=== PATIENT | female | born 1955 | race Caucasian/White ===

== ENCOUNTER 2017-12-09 02:59 | Inpatient (IN) | payer MEDICAID ==
[2017-12-09] VITALS (43 sets, daily range): BP systolic 84–143; BP diastolic 34–87
[~2017-12-09] VITALS: Ht 162.6 cm; Wt 185.7 kg
[2017-12-09] MEDS ORDERED: ONDANSETRON HCL 4MG/2ML VIAL IV STA ×2 (03:03→03:17)
[2017-12-09] MEDS ORDERED: IPRATROPIUM BROMIDE (0.02%) 0.5MG/2.5ML NEB HHN STA (03:03)
[2017-12-09] MEDS ORDERED: ALBUTEROL (0.083%) 2.5MG/3ML NEB HHN STA (03:03)
[2017-12-09] MEDS ORDERED: ACETAMINOPHEN 325MG TABLET PO STA (03:17)
[2017-12-09] MEDS ORDERED: AZITHROMYCIN 500 MG in DEXT 5% WATER 250 ML IV ONE (03:30)
[2017-12-09] MEDS ORDERED: CEFTRIAXONE 1 G PREMIX 50 ML IV ONE (03:30)
[2017-12-09 03:32] LABS: BG BASE EXCESS 7.7 mmol/L (-2.0-2.0); BG CARBOXYHEMOGLOBIN 1.6 % (0.5-1.5); BG DEOXYHEMOGLOBIN 7.4 % (0.0-5.0); BG FRACTION INSPIRED OXYGEN 36; BG HCO3 ACT 36.9 mmol/L (22.0-26.0); BG METHEMOGLOBIN 0.4 % (0.0-1.5); BG OXYGEN SATURATION 92.4 % (92.0-98.5); BG OXYHEMOGLOBIN 90.6 % (94.0-97.0); BG PCO2 73.8 mmHg (35.0-45.0); BG PH 7.317 (7.350-7.450); BG PO2 71.1 mmHg (75.0-100.0); BG SAMPLE SITE RIGHT RADIAL; BG VENT MODE NASAL CANNULA
[2017-12-09 03:33] LABS: HEMATOCRIT. 43.8 % (36.0-48.0); HEMOGLOBIN. 14.3 g/dL (12.0-16.0); MEAN CORPUSCULAR HEMOGLOBIN 31.1 pg (28.0-32.0); MEAN CORPUSCULAR VOLUME 95.2 fL (81.0-99.0); MEAN PLATELET VOLUME 8.9 fl (7.4-10.4); PLATELET 222 x1000/uL (130-400); RED CELL DISTRIBUTION WIDTH 16.5 % (11.6-14.6)
[2017-12-09 03:54] LABS: CHLORIDE 97 mEq/L (98-107)
[2017-12-09 04:10] LABS: CLARITY URINE CLEAR (CLEAR); COLOR URINE DARK YELLOW (YELLOW); KETONES URINE TRACE (NEGATIVE); LEUKOCYTE ESTERASE URINE TRACE (NEGATIVE); NITRITE URINE POSITIVE (NEGATIVE); OCCULT BLOOD URINE TRACE (NEGATIVE); PH URINE 5.5 (4.5-8.0); PROTEIN URINE 1+ (NEGATIVE); SPECIFIC GRAVITY URINE 1.023 (1.005-1.030)
[2017-12-09] MEDS ORDERED: IBUP-2029 PO (04:10)
[2017-12-09] MEDS ORDERED: LINA1TAB PO (04:13)
[2017-12-09] MEDS ORDERED: LISI-604 PO (04:14)
[2017-12-09] MEDS ORDERED: AMLO2.5T45 PO (04:16)
[2017-12-09 04:44] LABS: ATYPICAL LYMPHOCYTES 1; PLATELET ESTIMATE NORMAL
[2017-12-09] MEDS ORDERED: SODIUM CHLORIDE 0.9% 1000ML BAG (SEPSIS BOLUS) IV NR (05:30)
[2017-12-09] MEDS: DOPAMINE 400MG PREMIX 250 ML IV NR ×2 (05:47→10:51)
[2017-12-09 05:54] LABS: INR 1.2; PARTIAL THROMBOPLASTIN TIME 26.1 sec (23.4-31.0); PROTHROMBIN TIME 12.9 sec (9.4-11.6)
[2017-12-09 06:30] LABS: BG BASE EXCESS 0.8 mmol/L (-2.0-2.0); BG BILEVEL POS AIRWAY PRESSURE 18/5; BG CARBOXYHEMOGLOBIN 1.5 % (0.5-1.5); BG DEOXYHEMOGLOBIN 12.8 % (0.0-5.0); BG FRACTION INSPIRED OXYGEN 50; BG HCO3 ACT 32.6 mmol/L (22.0-26.0); BG METHEMOGLOBIN 0.4 % (0.0-1.5); BG OXYHEMOGLOBIN 85.3 % (94.0-97.0); BG PCO2 92.8 mmHg (35.0-45.0); BG PH 7.164 (7.350-7.450); BG PO2 67.1 mmHg (75.0-100.0); BG SAMPLE SITE RIGHT BRACHIAL; BG TOTAL HEMOGLOBIN 14.7 g/dL (12.0-18.0); BG VENT MODE MASK - BIPAP; BG VENT RATE 16 set
[2017-12-09] MEDS ORDERED: SUCCINYLCHOLINE CHLORIDE 200MG/10ML VIAL IV ONE ×2 (07:00→13:03)
[2017-12-09] MEDS ORDERED: MIDAZOLAM HCL 50 MG in DEXTROSE 5% WATER 40 ML IV ONE ×2 (07:00→10:15)
[2017-12-09 07:56] LABS: BG CARBOXYHEMOGLOBIN 1.6 % (0.5-1.5); BG DEOXYHEMOGLOBIN 7.3 % (0.0-5.0); BG FRACTION INSPIRED OXYGEN 50; BG HCO3 ACT 31.9 mmol/L (22.0-26.0); BG METHEMOGLOBIN 0.4 % (0.0-1.5); BG OXYGEN SATURATION 92.6 % (92.0-98.5); BG OXYHEMOGLOBIN 90.7 % (94.0-97.0); BG PH 7.241 (7.350-7.450); BG PO2 75.3 mmHg (75.0-100.0); BG SAMPLE SITE LEFT RADIAL; BG TIDAL VOLUME(mL) 600 mL; BG VENT MODE VENT - A/C; BG VENT RATE 16 set
[2017-12-09] MEDS ORDERED: FENTANYL CITRATE/PF 50MCG/ML 2ML VIAL IV ONE (08:15)
[2017-12-09] MEDS ORDERED: LIDOCAINE HCL/PF 1% 10 MG/ML 5ML VIAL ONE (08:50)
[2017-12-09] MEDS ORDERED: ONDANSETRON HCL 4MG/2ML VIAL IV PRN (10:15)
[2017-12-09] MEDS ORDERED: NA PHOS,M-B/NA PHOS,DI-BA ENEMA 118ML PR PRN (10:15)
[2017-12-09] MEDS ORDERED: IPRATROPIUM/ALBUTEROL 0.5-3(2.5)MG/3ML NEB INH PRN (10:15)
[2017-12-09] MEDS ORDERED: CLONIDINE 0.1MG TABLET PO PRN (10:15)
[2017-12-09] MEDS ORDERED: DOCUSATE SODIUM 100MG CAPSULE PO PRN (10:15)
[2017-12-09] MEDS ORDERED: DEXTROSE 50% WATER 50ML SYRINGE IV PRN (10:15)
[2017-12-09] MEDS ORDERED: DOPAMINE 400MG PREMIX 250 ML IV ONE (10:15)
[2017-12-09] MEDS ORDERED: MAGNESIUM/ALUMINUM HYDROXIDE/SIMETHICONE 30ML UDC PO PRN (10:15)
[2017-12-09] MEDS ORDERED: GUAIFENESIN 200MG/10ML SUGAR FREE UDC PO PRN (10:15)
[2017-12-09] MEDS ORDERED: NITROGLYCERIN 0.4MG TABLET SL SL PRN (10:15)
[2017-12-09] MEDS ORDERED: IPRATROPIUM/ALBUTEROL 0.5-3(2.5)MG/3ML NEB HHN PRN (12:30)
[2017-12-09] MEDS: BLOOD SUGAR DIAGNOSTIC STRIP TEST SCH ×3 (13:00→21:01)
[2017-12-09] MEDS ORDERED: NORMAL SALINE 0.9% 10 ML SYR ONE (13:03)
[2017-12-09 13:12] LABS: BG BASE EXCESS 8.7 mmol/L (-2.0-2.0); BG CARBOXYHEMOGLOBIN 1.1 % (0.5-1.5); BG DEOXYHEMOGLOBIN 8.7 % (0.0-5.0); BG FRACTION INSPIRED OXYGEN 50; BG HCO3 ACT 34.4 mmol/L (22.0-26.0); BG METHEMOGLOBIN 0.3 % (0.0-1.5); BG OXYGEN SATURATION 91.2 % (92.0-98.5); BG OXYHEMOGLOBIN 89.9 % (94.0-97.0); BG PCO2 50.6 mmHg (35.0-45.0); BG PO2 58.1 mmHg (75.0-100.0); BG SAMPLE SITE RIGHT RADIAL; BG TIDAL VOLUME(mL) 600 mL; BG TOTAL HEMOGLOBIN 14.8 g/dL (12.0-18.0); BG VENT MODE VENT - A/C; BG VENT RATE 16 set
[2017-12-09] MEDS: INSULIN LISPRO 100 UNITS/ML SUBCUT SCH ×3 (13:20→21:01)
[2017-12-09] MEDS ORDERED: NOREPINEPHRINE 4 MG in DEXT 5% WATER 246 ML IV PRN (13:30)
[2017-12-09] MEDS: NOREPINEPHRINE 4 MG in DEXT 5% WATER 246 ML IV PRN ×2 (14:10→21:56)
[2017-12-09] MEDS: DIPHENHYDRAMINE 50MG/ML VIAL IV PRN (14:21)
[2017-12-09] MEDS: PANTOPRAZOLE SODIUM 40 MG/VIAL IV SCH (14:21)
[2017-12-09] MEDS: ENOXAPARIN 40MG/0.4ML SYR SUBCUT SCH ×2 (14:36→23:03)
[2017-12-09] MEDS ORDERED: LEVOFLOXACIN 500MG PREMIX 100 ML IV SCH (15:00)
[2017-12-09] MEDS: IPRATROPIUM/ALBUTEROL 0.5-3(2.5)MG/3ML NEB HHN SCH ×2 (16:12→20:49)
[2017-12-09] MEDS: GUAIFENESIN/DM 600MG/30MG ER TAB 12HR PO SCH ×2 (17:05→23:03)
[2017-12-09] MEDS: FUROSEMIDE 40MG/4ML VIAL IVP SCH (17:33)
[2017-12-09] MEDS: SPIRONOLACTONE 25MG TABLET PO SCH (17:34)
[2017-12-09] MEDS: MIDAZOLAM HCL 50 MG in DEXTROSE 5% WATER 40 ML IV PRN ×2 (17:38→21:29)
[2017-12-09] MEDS: FENTANYL CITRATE/PF 500 MCG in SODIUM CHLORIDE 0.9% 40 ML IV PRN (17:41)
[2017-12-09 18:20] LABS: CREATINE KINASE MB FRACTION 1.3 ng/mL (0.5-3.6)
[2017-12-09] MEDS ORDERED: ZOLPIDEM TARTRATE 5MG TABLET PO PRN (21:00)
[2017-12-09] MEDS ORDERED: DEXT 5% IV NR (22:00)
[2017-12-09] MEDS ORDERED: WATER IV NR (22:00)
[2017-12-09] MEDS ORDERED: VANCOMYCIN IV NR (22:00)
[2017-12-10] VITALS (90 sets, daily range): BP systolic 84–130; BP diastolic 41–82
[2017-12-10] MEDS: IPRATROPIUM/ALBUTEROL 0.5-3(2.5)MG/3ML NEB HHN SCH ×7 (00:49→23:53)
[2017-12-10 00:53] LABS: *AMPHETAMINES SCREEN URINE NEGATIVE (NEGATIVE); *BARBITURATES SCREEN URINE NEGATIVE (NEGATIVE); *BENZODIAZEPINES SCREEN URINE PRESUMTIVE POSITIVE (NEGATIVE); *COCAINE SCREEN URINE NEGATIVE (NEGATIVE); METHADONE URINE SCREEN NEGATIVE (NEGATIVE); OPIATES URINE SCREEN NEGATIVE (NEGATIVE)
[2017-12-10 00:54] LABS: CANNABINOID URINE SCREEN NEGATIVE (NEGATIVE); PHENCYCLIDINE URINE SCREEN NEGATIVE (NEGATIVE)
[2017-12-10] MEDS: FENTANYL CITRATE/PF 500 MCG in SODIUM CHLORIDE 0.9% 40 ML IV PRN ×3 (01:00→16:28)
[2017-12-10 02:34] LABS: CREATINE KINASE MB FRACTION 0.9 ng/mL (0.5-3.6)
[2017-12-10] MEDS: MIDAZOLAM HCL 50 MG in DEXTROSE 5% WATER 40 ML IV PRN ×4 (03:01→23:48)
[2017-12-10] MEDS ORDERED: AZITHROMYCIN 500 MG in DEXT 5% WATER 250 ML IV SCH (05:00)
[2017-12-10] MEDS: NOREPINEPHRINE 4 MG in DEXT 5% WATER 246 ML IV PRN ×2 (05:05→17:24)
[2017-12-10] MEDS: SPIRONOLACTONE 25MG TABLET PO SCH ×2 (05:22→17:23)
[2017-12-10] MEDS: FUROSEMIDE 40MG/4ML VIAL IVP SCH ×2 (05:22→17:23)
[2017-12-10 05:23] LABS: HEMATOCRIT. 42.6 % (36.0-48.0); HEMOGLOBIN. 14.1 g/dL (12.0-16.0); MEAN CORPUSCULAR HEMOGLOBIN 31.2 pg (28.0-32.0); MEAN CORPUSCULAR VOLUME 94.1 fL (81.0-99.0); MEAN PLATELET VOLUME 9.1 fl (7.4-10.4); PLATELET 227 x1000/uL (130-400); RED BLOOD CELL COUNT 4.53 mill/uL (4.2-5.4); RED CELL DISTRIBUTION WIDTH 16.2 % (11.6-14.6)
[2017-12-10 06:11] LABS: CHLORIDE 98 mEq/L (98-107)
[2017-12-10] MEDS: INSULIN LISPRO 100 UNITS/ML SUBCUT SCH ×4 (06:13→20:56)
[2017-12-10] MEDS: BLOOD SUGAR DIAGNOSTIC STRIP TEST SCH ×4 (06:13→20:56)
[2017-12-10 07:19] LABS: BG BASE EXCESS 9.5 mmol/L (-2.0-2.0); BG CARBOXYHEMOGLOBIN 0.8 % (0.5-1.5); BG DEOXYHEMOGLOBIN 5.3 % (0.0-5.0); BG HCO3 ACT 34.7 mmol/L (22.0-26.0); BG METHEMOGLOBIN 0.1 % (0.0-1.5); BG OXYGEN SATURATION 94.7 % (92.0-98.5); BG OXYHEMOGLOBIN 93.8 % (94.0-97.0); BG PCO2 48.7 mmHg (35.0-45.0); BG PH 7.471 (7.350-7.450); BG PO2 70.3 mmHg (75.0-100.0); BG SAMPLE SITE RIGHT RADIAL; BG TIDAL VOLUME(mL) 600 mL; BG TOTAL HEMOGLOBIN 14.7 g/dL (12.0-18.0); BG VENT MODE VENT - A/C; BG VENT RATE 16 set
[2017-12-10] MEDS: GUAIFENESIN/DM 600MG/30MG ER TAB 12HR PO SCH ×2 (08:30→20:55)
[2017-12-10] MEDS: ASPIRIN 325MG EC TABLET PO SCH (08:30)
[2017-12-10] MEDS: PANTOPRAZOLE SODIUM 40 MG/VIAL IV SCH (08:31)
[2017-12-10] MEDS: TRAMADOL 50MG TABLET PO PRN ×2 (08:31→20:55)
[2017-12-10] MEDS: ENOXAPARIN 40MG/0.4ML SYR SUBCUT SCH ×2 (08:32→20:55)
[2017-12-10] MEDS: VANCOMYCIN 1500MG in DEXTROSE 5% WATER 250ML IV SCH (08:35)
[2017-12-10] MEDS ORDERED: CEFTRIAXONE 1 G PREMIX 50 ML IV SCH (09:00)
[2017-12-10] MEDS: LEVOFLOXACIN 500MG PREMIX 100 ML IV SCH (10:17)
[2017-12-10] MEDS: ACETAMINOPHEN 325MG TABLET PO PRN (13:23)
[2017-12-11] VITALS (96 sets, daily range): BP systolic 83–123; BP diastolic 36–73
[2017-12-11] MEDS: FENTANYL CITRATE/PF 500 MCG in SODIUM CHLORIDE 0.9% 40 ML IV PRN ×3 (00:28→20:35)
[2017-12-11] MEDS: NOREPINEPHRINE 4 MG in DEXT 5% WATER 246 ML IV PRN ×3 (01:23→16:13)
[2017-12-11] MEDS: VANCOMYCIN 1500MG in DEXTROSE 5% WATER 250ML IV SCH ×2 (03:20→20:33)
[2017-12-11] MEDS: IPRATROPIUM/ALBUTEROL 0.5-3(2.5)MG/3ML NEB HHN SCH ×6 (04:00→23:39)
[2017-12-11 05:02] LABS: PLATELET ESTIMATE NORMAL
[2017-12-11 05:37] LABS: HEMATOCRIT. 41.7 % (36.0-48.0); HEMOGLOBIN. 13.8 g/dL (12.0-16.0); MEAN CORPUSCULAR VOLUME 93.5 fL (81.0-99.0); MEAN PLATELET VOLUME 9.2 fl (7.4-10.4); PLATELET 220 x1000/uL (130-400); RED BLOOD CELL COUNT 4.46 mill/uL (4.2-5.4); RED CELL DISTRIBUTION WIDTH 16.2 % (11.6-14.6)
[2017-12-11] MEDS: AZITHROMYCIN 500 MG in DEXT 5% WATER 250 ML IV SCH (05:44)
[2017-12-11] MEDS: FUROSEMIDE 40MG/4ML VIAL IVP SCH ×2 (05:44→17:33)
[2017-12-11] MEDS: SPIRONOLACTONE 25MG TABLET PO SCH ×2 (05:44→17:33)
[2017-12-11 05:48] LABS: CHLORIDE 96 mEq/L (98-107)
[2017-12-11 05:59] LABS: LDL CHOLESTEROL 61 mg/dL (5-100)
[2017-12-11 06:00] LABS: CREATINE KINASE 30 IU/L (26-192)
[2017-12-11 06:01] LABS: HDL CHOLESTEROL 20 mg/dL (40-59)
[2017-12-11 06:04] LABS: CREATINE KINASE MB FRACTION < 0.5 ng/mL (0.5-3.6)
[2017-12-11] MEDS: BLOOD SUGAR DIAGNOSTIC STRIP TEST SCH ×4 (06:07→20:36)
[2017-12-11] MEDS: INSULIN LISPRO 100 UNITS/ML SUBCUT SCH ×4 (06:08→20:39)
[2017-12-11] MEDS: MIDAZOLAM HCL 50 MG in DEXTROSE 5% WATER 40 ML IV PRN ×2 (07:30→16:53)
[2017-12-11 08:42] LABS: BG BASE EXCESS 8.6 mmol/L (-2.0-2.0); BG CARBOXYHEMOGLOBIN 0.7 % (0.5-1.5); BG DEOXYHEMOGLOBIN 4.4 % (0.0-5.0); BG FRACTION INSPIRED OXYGEN 100; BG HCO3 ACT 34.5 mmol/L (22.0-26.0); BG METHEMOGLOBIN 0.2 % (0.0-1.5); BG OXYGEN SATURATION 95.6 % (92.0-98.5); BG OXYHEMOGLOBIN 94.7 % (94.0-97.0); BG PCO2 51.8 mmHg (35.0-45.0); BG PH 7.441 (7.350-7.450); BG PO2 78.4 mmHg (75.0-100.0); BG SAMPLE SITE RIGHT RADIAL; BG TIDAL VOLUME(mL) 600 mL; BG TOTAL HEMOGLOBIN 14.5 g/dL (12.0-18.0); BG VENT MODE VENT - A/C; BG VENT RATE 16 set
[2017-12-11] MEDS: ASPIRIN 325MG EC TABLET PO SCH (09:14)
[2017-12-11] MEDS: GUAIFENESIN/DM 600MG/30MG ER TAB 12HR PO SCH ×2 (09:14→20:33)
[2017-12-11] MEDS: PANTOPRAZOLE SODIUM 40 MG/VIAL IV SCH (09:15)
[2017-12-11] MEDS: CEFTRIAXONE 1 G PREMIX 50 ML IV SCH (09:15)
[2017-12-11] MEDS: ENOXAPARIN 40MG/0.4ML SYR SUBCUT SCH (09:15)
[2017-12-11] MEDS: LEVOFLOXACIN 500MG PREMIX 100 ML IV SCH (11:47)
[2017-12-11 13:53] LABS: PLATELET ESTIMATE NORMAL
[2017-12-11] MEDS: ACETAMINOPHEN 325MG TABLET PO PRN (16:10)
[2017-12-11 17:02] LABS: BG BASE EXCESS 8.5 mmol/L (-2.0-2.0); BG CARBOXYHEMOGLOBIN 0.7 % (0.5-1.5); BG DEOXYHEMOGLOBIN 8.2 % (0.0-5.0); BG FRACTION INSPIRED OXYGEN 100; BG HCO3 ACT 34.6 mmol/L (22.0-26.0); BG METHEMOGLOBIN 0.4 % (0.0-1.5); BG OXYGEN SATURATION 91.7 % (92.0-98.5); BG OXYHEMOGLOBIN 90.7 % (94.0-97.0); BG PCO2 52.9 mmHg (35.0-45.0); BG PH 7.433 (7.350-7.450); BG PO2 62.7 mmHg (75.0-100.0); BG SAMPLE SITE RIGHT RADIAL; BG TIDAL VOLUME(mL) 550 mL; BG TOTAL HEMOGLOBIN 14.7 g/dL (12.0-18.0); BG VENT MODE VENT - A/C; BG VENT RATE 18 set
[2017-12-11] MEDS: ENOXAPARIN 100MG/ML SYR SUBCUT SCH (20:33)
[2017-12-11] MEDS ORDERED: POTASSIUM CHLORIDE INJ 40 MEQ in DEXT 5% WATER 500 ML IV NR (21:30)
[2017-12-12] VITALS (96 sets, daily range): BP systolic 72–175; BP diastolic 44–106
[2017-12-12] MEDS: MIDAZOLAM HCL 50 MG in DEXTROSE 5% WATER 40 ML IV PRN ×3 (01:36→21:55)
[2017-12-12] MEDS ORDERED: VASOPRESSIN 10 UNIT in SODIUM CHLORIDE 0.9% 99.5 ML IV PRN (03:30)
[2017-12-12] MEDS: IPRATROPIUM/ALBUTEROL 0.5-3(2.5)MG/3ML NEB HHN SCH ×5 (03:36→20:39)
[2017-12-12] MEDS: AZITHROMYCIN 500 MG in DEXT 5% WATER 250 ML IV SCH (06:00)
[2017-12-12] MEDS: SPIRONOLACTONE 25MG TABLET PO SCH ×2 (06:00→17:15)
[2017-12-12] MEDS: FUROSEMIDE 40MG/4ML VIAL IVP SCH ×2 (06:00→17:14)
[2017-12-12] MEDS: PHENYLEPHRINE 20 MG in DEXT 5% WATER 248 ML IV PRN ×2 (06:02→09:29)
[2017-12-12] MEDS: BLOOD SUGAR DIAGNOSTIC STRIP TEST SCH ×4 (06:30→21:20)
[2017-12-12] MEDS: INSULIN LISPRO 100 UNITS/ML SUBCUT SCH ×4 (06:52→21:00)
[2017-12-12 08:22] LABS: BG BASE EXCESS 6.6 mmol/L (-2.0-2.0); BG CARBOXYHEMOGLOBIN 0.6 % (0.5-1.5); BG DEOXYHEMOGLOBIN 9.1 % (0.0-5.0); BG FRACTION INSPIRED OXYGEN 100; BG HCO3 ACT 34.4 mmol/L (22.0-26.0); BG METHEMOGLOBIN 0.4 % (0.0-1.5); BG OXYGEN SATURATION 90.8 % (92.0-98.5); BG OXYHEMOGLOBIN 89.9 % (94.0-97.0); BG PCO2 61.5 mmHg (35.0-45.0); BG PH 7.366 (7.350-7.450); BG PO2 61.7 mmHg (75.0-100.0); BG SAMPLE SITE RIGHT RADIAL; BG TIDAL VOLUME(mL) 550 mL; BG TOTAL HEMOGLOBIN 16.2 g/dL (12.0-18.0); BG VENT MODE VENT - A/C; BG VENT RATE 18 set
[2017-12-12] MEDS: NOREPINEPHRINE 4 MG in DEXT 5% WATER 246 ML IV PRN (08:31)
[2017-12-12] MEDS: PANTOPRAZOLE SODIUM 40 MG/VIAL IV SCH (09:17)
[2017-12-12] MEDS: CEFTRIAXONE 1 G PREMIX 50 ML IV SCH (09:18)
[2017-12-12] MEDS: ASPIRIN 325MG EC TABLET PO SCH (09:18)
[2017-12-12] MEDS: GUAIFENESIN/DM 600MG/30MG ER TAB 12HR PO SCH ×2 (09:18→21:19)
[2017-12-12] MEDS: ENOXAPARIN 100MG/ML SYR SUBCUT SCH ×2 (09:18→21:19)
[2017-12-12] MEDS: NYSTATIN POWDER 15GM TOP SCH ×2 (09:19→17:14)
[2017-12-12] MEDS: LEVOFLOXACIN 500MG PREMIX 100 ML IV SCH (10:29)
[2017-12-12] MEDS: FENTANYL CITRATE/PF 500 MCG in SODIUM CHLORIDE 0.9% 40 ML IV PRN ×2 (10:35→22:04)
[2017-12-12] MEDS: NOREPINEPHRINE 16 MG in DEXT 5% WATER 234 ML IV PRN (12:19)
[2017-12-12 12:30] LABS: BG BASE EXCESS 7.1 mmol/L (-2.0-2.0); BG CARBOXYHEMOGLOBIN 0.9 % (0.5-1.5); BG DEOXYHEMOGLOBIN 6.9 % (0.0-5.0); BG FRACTION INSPIRED OXYGEN 100; BG METHEMOGLOBIN 0.3 % (0.0-1.5); BG OXYHEMOGLOBIN 91.9 % (94.0-97.0); BG PCO2 56.9 mmHg (35.0-45.0); BG PH 7.394 (7.350-7.450); BG PO2 67.1 mmHg (75.0-100.0); BG SAMPLE SITE RIGHT RADIAL; BG TIDAL VOLUME(mL) 550 mL; BG TOTAL HEMOGLOBIN 15.4 g/dL (12.0-18.0); BG VENT MODE VENT - A/C; BG VENT RATE 20 set
[2017-12-12] MEDS: PHENYLEPHRINE 40 MG in DEXT 5% WATER 246 ML IV PRN ×2 (13:18→21:48)
[2017-12-12] MEDS ORDERED: VANCOMYCIN 1 G PREMIX 200 ML IV SCH (14:00)
[2017-12-12] MEDS: CLINDAMYCIN 600MG PREMIX 50 ML IV SCH ×2 (15:16→23:14)
[2017-12-13] VITALS (96 sets, daily range): BP systolic 70–164; BP diastolic 15–116
[2017-12-13] MEDS: ACETYLCYSTEINE 100MG/ML 10% VIAL 4ML INH SCH ×2 (00:50→15:44)
[2017-12-13] MEDS: IPRATROPIUM/ALBUTEROL 0.5-3(2.5)MG/3ML NEB HHN SCH ×6 (00:56→21:05)
[2017-12-13] MEDS: FUROSEMIDE 40MG/4ML VIAL IVP SCH (05:33)
[2017-12-13] MEDS: SPIRONOLACTONE 25MG TABLET PO SCH ×3 (05:33→18:21)
[2017-12-13 05:47] LABS: HEMOGLOBIN. 15.7 g/dL (12.0-16.0); MEAN CORPUSCULAR HEMOGLOBIN 30.9 pg (28.0-32.0); MEAN CORPUSCULAR VOLUME 94.4 fL (81.0-99.0); MEAN PLATELET VOLUME 9.9 fl (7.4-10.4); PLATELET 209 x1000/uL (130-400); RED BLOOD CELL COUNT 5.08 mill/uL (4.2-5.4); RED CELL DISTRIBUTION WIDTH 16.6 % (11.6-14.6)
[2017-12-13 06:09] LABS: CHLORIDE 94 mEq/L (98-107)
[2017-12-13] MEDS: CLINDAMYCIN 600MG PREMIX 50 ML IV SCH (06:36)
[2017-12-13] MEDS: INSULIN LISPRO 100 UNITS/ML SUBCUT SCH ×4 (06:37→21:00)
[2017-12-13] MEDS: BLOOD SUGAR DIAGNOSTIC STRIP TEST SCH ×4 (06:40→21:24)
[2017-12-13] MEDS: NOREPINEPHRINE 16 MG in DEXT 5% WATER 234 ML IV PRN (07:34)
[2017-12-13 08:23] LABS: BG BASE EXCESS 3.1 mmol/L (-2.0-2.0); BG CARBOXYHEMOGLOBIN 0.7 % (0.5-1.5); BG FRACTION INSPIRED OXYGEN 100; BG HCO3 ACT 29.7 mmol/L (22.0-26.0); BG METHEMOGLOBIN 0.4 % (0.0-1.5); BG OXYGEN SATURATION 90.9 % (92.0-98.5); BG OXYHEMOGLOBIN 89.9 % (94.0-97.0); BG PCO2 52.7 mmHg (35.0-45.0); BG PH 7.369 (7.350-7.450); BG PO2 62.7 mmHg (75.0-100.0); BG SAMPLE SITE RIGHT RADIAL; BG TIDAL VOLUME(mL) 550 mL; BG TOTAL HEMOGLOBIN 15.5 g/dL (12.0-18.0); BG VENT MODE VENT - A/C; BG VENT RATE 20 set
[2017-12-13] MEDS: ASPIRIN 325MG EC TABLET PO SCH (08:33)
[2017-12-13] MEDS: GUAIFENESIN/DM 600MG/30MG ER TAB 12HR PO SCH ×2 (08:33→21:31)
[2017-12-13] MEDS: PANTOPRAZOLE SODIUM 40 MG/VIAL IV SCH (08:33)
[2017-12-13] MEDS: NYSTATIN POWDER 15GM TOP SCH ×2 (08:34→18:21)
[2017-12-13] MEDS: ENOXAPARIN 100MG/ML SYR SUBCUT SCH ×2 (08:34→21:31)
[2017-12-13] MEDS ORDERED: CEFTRIAXONE 2 G in DEXTROSE 5% WATER 50 ML IV SCH (09:00)
[2017-12-13] MEDS: PHENYLEPHRINE 40 MG in DEXT 5% WATER 246 ML IV PRN (09:50)
[2017-12-13] MEDS: LEVOFLOXACIN 500MG PREMIX 100 ML IV SCH (10:05)
[2017-12-13] MEDS ORDERED: DIGOXIN 500MCG/2ML AMP IV NR (12:45)
[2017-12-13] MEDS: METHYLPREDNISOLONE SOD SUCC 125 MG/2 ML VIAL IV SCH ×2 (13:09→21:31)
[2017-12-13] MEDS: LINEZOLID 600 MG PREMIX 300 ML IV SCH (14:20)
[2017-12-13 14:27] LABS: PLATELET ESTIMATE NORMAL
[2017-12-13] MEDS ORDERED: DIGOXIN 500MCG/2ML AMP IV PRN (15:00)
[2017-12-13] MEDS: FUROSEMIDE 100MG/10ML VIAL IVP SCH (18:21)
[2017-12-14] VITALS (93 sets, daily range): BP systolic 76–187; BP diastolic 30–123
[2017-12-14] MEDS: IPRATROPIUM/ALBUTEROL 0.5-3(2.5)MG/3ML NEB HHN SCH ×6 (00:55→20:03)
[2017-12-14] MEDS: LINEZOLID 600 MG PREMIX 300 ML IV SCH ×2 (01:54→13:50)
[2017-12-14] MEDS: SPIRONOLACTONE 25MG TABLET PO SCH ×2 (05:24→18:32)
[2017-12-14] MEDS: METHYLPREDNISOLONE SOD SUCC 125 MG/2 ML VIAL IV SCH ×3 (05:24→21:23)
[2017-12-14] MEDS: FUROSEMIDE 100MG/10ML VIAL IVP SCH ×2 (05:25→18:33)
[2017-12-14 05:44] LABS: HEMATOCRIT. 45.5 % (36.0-48.0); HEMOGLOBIN. 15.1 g/dL (12.0-16.0); MEAN CORPUSCULAR HEMOGLOBIN 31.1 pg (28.0-32.0); MEAN CORPUSCULAR VOLUME 93.6 fL (81.0-99.0); MEAN PLATELET VOLUME 10.4 fl (7.4-10.4); PLATELET 267 x1000/uL (130-400); RED BLOOD CELL COUNT 4.86 mill/uL (4.2-5.4); RED CELL DISTRIBUTION WIDTH 16.1 % (11.6-14.6)
[2017-12-14] MEDS: BLOOD SUGAR DIAGNOSTIC STRIP TEST SCH ×4 (05:45→21:12)
[2017-12-14 06:22] LABS: CHLORIDE 92 mEq/L (98-107)
[2017-12-14] MEDS: INSULIN LISPRO 100 UNITS/ML SUBCUT SCH ×4 (06:55→21:24)
[2017-12-14 07:54] LABS: BG BASE EXCESS 5.4 mmol/L (-2.0-2.0); BG CARBOXYHEMOGLOBIN 0.8 % (0.5-1.5); BG DEOXYHEMOGLOBIN 12.3 % (0.0-5.0); BG HCO3 ACT 32.5 mmol/L (22.0-26.0); BG METHEMOGLOBIN 0.3 % (0.0-1.5); BG OXYGEN SATURATION 87.6 % (92.0-98.5); BG OXYHEMOGLOBIN 86.6 % (94.0-97.0); BG PCO2 56.3 mmHg (35.0-45.0); BG PH 7.379 (7.350-7.450); BG PO2 53.9 mmHg (75.0-100.0); BG SAMPLE SITE RIGHT RADIAL; BG TIDAL VOLUME(mL) 500 mL; BG TOTAL HEMOGLOBIN 16.7 g/dL (12.0-18.0); BG VENT MODE VENT - A/C; BG VENT RATE 20 set
[2017-12-14] MEDS: ACETYLCYSTEINE 100MG/ML 10% VIAL 4ML INH SCH ×2 (08:28→16:08)
[2017-12-14] MEDS: PANTOPRAZOLE SODIUM 40 MG/VIAL IV SCH (09:32)
[2017-12-14] MEDS: GUAIFENESIN/DM 600MG/30MG ER TAB 12HR PO SCH ×2 (09:32→21:23)
[2017-12-14] MEDS: ASPIRIN 325MG EC TABLET PO SCH (09:32)
[2017-12-14] MEDS: ENOXAPARIN 100MG/ML SYR SUBCUT SCH ×2 (09:32→21:23)
[2017-12-14] MEDS: NYSTATIN POWDER 15GM TOP SCH ×2 (09:33→18:34)
[2017-12-14] MEDS: NOREPINEPHRINE 16 MG in DEXT 5% WATER 234 ML IV PRN (10:50)
[2017-12-14 11:16] LABS: PLATELET ESTIMATE NORMAL
[2017-12-14] MEDS ORDERED: LIDOCAINE HCL/PF 1% 2ML VIAL ONE (13:52)
[2017-12-15] VITALS (93 sets, daily range): BP systolic 87–136; BP diastolic 44–100
[2017-12-15] MEDS: IPRATROPIUM/ALBUTEROL 0.5-3(2.5)MG/3ML NEB HHN SCH ×6 (01:37→20:34)
[2017-12-15] MEDS: ACETYLCYSTEINE 100MG/ML 10% VIAL 4ML INH SCH ×3 (01:37→16:18)
[2017-12-15] MEDS: LINEZOLID 600 MG PREMIX 300 ML IV SCH ×2 (01:44→13:00)
[2017-12-15] MEDS: SPIRONOLACTONE 25MG TABLET PO SCH ×2 (05:24→18:13)
[2017-12-15] MEDS: METHYLPREDNISOLONE SOD SUCC 125 MG/2 ML VIAL IV SCH ×3 (05:24→22:01)
[2017-12-15] MEDS: FUROSEMIDE 100MG/10ML VIAL IVP SCH ×2 (05:24→18:13)
[2017-12-15 05:54] LABS: CHLORIDE 94 mEq/L (98-107)
[2017-12-15] MEDS: BLOOD SUGAR DIAGNOSTIC STRIP TEST SCH ×4 (06:00→21:00)
[2017-12-15] MEDS: INSULIN LISPRO 100 UNITS/ML SUBCUT SCH ×4 (06:12→21:57)
[2017-12-15 08:42] LABS: BG BASE EXCESS 4.5 mmol/L (-2.0-2.0); BG CARBOXYHEMOGLOBIN 0.8 % (0.5-1.5); BG DEOXYHEMOGLOBIN 12.1 % (0.0-5.0); BG FRACTION INSPIRED OXYGEN 100; BG HCO3 ACT 30.4 mmol/L (22.0-26.0); BG METHEMOGLOBIN 0.2 % (0.0-1.5); BG OXYGEN SATURATION 87.8 % (92.0-98.5); BG OXYHEMOGLOBIN 86.9 % (94.0-97.0); BG PCO2 49.3 mmHg (35.0-45.0); BG PH 7.408 (7.350-7.450); BG PO2 54.8 mmHg (75.0-100.0); BG SAMPLE SITE LEFT RADIAL; BG TIDAL VOLUME(mL) 600 mL; BG VENT MODE VENT - A/C; BG VENT RATE 20 set
[2017-12-15] MEDS: PANTOPRAZOLE SODIUM 40 MG/VIAL IV SCH (09:21)
[2017-12-15] MEDS: GUAIFENESIN/DM 600MG/30MG ER TAB 12HR PO SCH ×2 (09:21→21:57)
[2017-12-15] MEDS: ENOXAPARIN 100MG/ML SYR SUBCUT SCH ×2 (09:21→21:59)
[2017-12-15] MEDS: ASPIRIN 325MG EC TABLET PO SCH (09:21)
[2017-12-15] MEDS: NYSTATIN POWDER 15GM TOP SCH ×2 (09:30→18:15)
[2017-12-15] MEDS: METOCLOPRAMIDE HCL 10MG/2ML VIAL IV SCH ×2 (12:57→18:13)
[2017-12-15] MEDS: NOREPINEPHRINE 16 MG in DEXT 5% WATER 234 ML IV PRN (13:02)
[2017-12-16] VITALS (92 sets, daily range): BP systolic 97–156; BP diastolic 52–99
[2017-12-16] MEDS: METOCLOPRAMIDE HCL 10MG/2ML VIAL IV SCH ×4 (00:14→18:20)
[2017-12-16] MEDS: ACETYLCYSTEINE 100MG/ML 10% VIAL 4ML INH SCH ×3 (00:21→23:47)
[2017-12-16] MEDS: IPRATROPIUM/ALBUTEROL 0.5-3(2.5)MG/3ML NEB HHN SCH ×7 (00:21→23:47)
[2017-12-16] MEDS: LINEZOLID 600 MG PREMIX 300 ML IV SCH ×2 (01:16→13:36)
[2017-12-16] MEDS: INSULIN LISPRO 100 UNITS/ML SUBCUT SCH ×4 (06:07→21:55)
[2017-12-16] MEDS: METHYLPREDNISOLONE SOD SUCC 125 MG/2 ML VIAL IV SCH (06:08)
[2017-12-16] MEDS: FUROSEMIDE 100MG/10ML VIAL IVP SCH (06:08)
[2017-12-16] MEDS: SPIRONOLACTONE 25MG TABLET PO SCH (06:09)
[2017-12-16] MEDS: BLOOD SUGAR DIAGNOSTIC STRIP TEST SCH ×4 (06:09→21:47)
[2017-12-16] MEDS: NOREPINEPHRINE 16 MG in DEXT 5% WATER 234 ML IV PRN (07:31)
[2017-12-16 09:07] LABS: BG BASE EXCESS 4.5 mmol/L (-2.0-2.0); BG CARBOXYHEMOGLOBIN 0.8 % (0.5-1.5); BG DEOXYHEMOGLOBIN 7.3 % (0.0-5.0); BG FRACTION INSPIRED OXYGEN 100; BG HCO3 ACT 30.6 mmol/L (22.0-26.0); BG METHEMOGLOBIN 0.4 % (0.0-1.5); BG OXYGEN SATURATION 92.6 % (92.0-98.5); BG OXYHEMOGLOBIN 91.5 % (94.0-97.0); BG PCO2 50.4 mmHg (35.0-45.0); BG PH 7.401 (7.350-7.450); BG SAMPLE SITE RIGHT RADIAL; BG TIDAL VOLUME(mL) 550 mL; BG TOTAL HEMOGLOBIN 16.1 g/dL (12.0-18.0); BG VENT MODE VENT - A/C; BG VENT RATE 20 set
[2017-12-16] MEDS: NYSTATIN POWDER 15GM TOP SCH ×2 (09:38→17:19)
[2017-12-16] MEDS: ENOXAPARIN 100MG/ML SYR SUBCUT SCH ×2 (09:40→21:48)
[2017-12-16] MEDS: PANTOPRAZOLE SODIUM 40 MG/VIAL IV SCH (09:40)
[2017-12-16] MEDS: ASPIRIN 325MG EC TABLET PO SCH (09:40)
[2017-12-16] MEDS: GUAIFENESIN/DM 600MG/30MG ER TAB 12HR PO SCH ×2 (09:40→21:48)
[2017-12-16] MEDS: INSULIN GLARGINE UD 100 UNITS/ML SYR SUBCUT SCH ×2 (10:09→22:52)
[2017-12-16 11:33] LABS: HEMATOCRIT. 45.1 % (36.0-48.0); HEMOGLOBIN. 15.2 g/dL (12.0-16.0); MEAN CORPUSCULAR HEMOGLOBIN 31.3 pg (28.0-32.0); MEAN CORPUSCULAR VOLUME 92.9 fL (81.0-99.0); MEAN PLATELET VOLUME 9.6 fl (7.4-10.4); PLATELET 296 x1000/uL (130-400); RED BLOOD CELL COUNT 4.86 mill/uL (4.2-5.4); RED CELL DISTRIBUTION WIDTH 16.5 % (11.6-14.6)
[2017-12-16 11:57] LABS: CHLORIDE 96 mEq/L (98-107)
[2017-12-16 13:50] LABS: NUCLEATED RED BLOOD CELLS 6 /100 WBC; PLATELET ESTIMATE NORMAL
[2017-12-16] MEDS: METHYLPREDNISOLONE SOD SUCC 40 MG/ML VIAL IV SCH (17:18)
[2017-12-16] MEDS: FUROSEMIDE 40MG/4ML VIAL IVP SCH (17:18)
[2017-12-16] MEDS: ACETAMINOPHEN 325MG TABLET PO PRN (17:19)
[2017-12-16] MEDS: MORPHINE SULFATE 4 MG/ML CPJ (NOT FOR IM USE) IV PRN (18:20)
[2017-12-16] MEDS: DIPHENHYDRAMINE 50MG/ML VIAL IV PRN (21:48)
[2017-12-17] VITALS (91 sets, daily range): BP systolic 71–124; BP diastolic 30–76
[2017-12-17] MEDS: METOCLOPRAMIDE HCL 10MG/2ML VIAL IV SCH ×4 (00:55→17:12)
[2017-12-17] MEDS: LINEZOLID 600 MG PREMIX 300 ML IV SCH ×2 (01:00→14:40)
[2017-12-17] MEDS: ACETAMINOPHEN 325MG TABLET PO PRN ×2 (01:07→17:16)
[2017-12-17] MEDS: IPRATROPIUM/ALBUTEROL 0.5-3(2.5)MG/3ML NEB HHN SCH ×5 (03:38→20:49)
[2017-12-17] MEDS: BLOOD SUGAR DIAGNOSTIC STRIP TEST SCH ×4 (05:27→21:36)
[2017-12-17 05:52] LABS: HEMATOCRIT. 42.8 % (36.0-48.0); HEMOGLOBIN. 14.3 g/dL (12.0-16.0); MEAN CORPUSCULAR HEMOGLOBIN 31.3 pg (28.0-32.0); MEAN CORPUSCULAR VOLUME 93.2 fL (81.0-99.0); MEAN PLATELET VOLUME 9.8 fl (7.4-10.4); PLATELET 267 x1000/uL (130-400); RED BLOOD CELL COUNT 4.59 mill/uL (4.2-5.4); RED CELL DISTRIBUTION WIDTH 16.6 % (11.6-14.6)
[2017-12-17] MEDS: MORPHINE SULFATE 4 MG/ML CPJ (NOT FOR IM USE) IV PRN ×2 (05:53→14:40)
[2017-12-17] MEDS: FUROSEMIDE 40MG/4ML VIAL IVP SCH ×2 (05:53→17:12)
[2017-12-17] MEDS: METHYLPREDNISOLONE SOD SUCC 40 MG/ML VIAL IV SCH (05:53)
[2017-12-17] MEDS: INSULIN LISPRO 100 UNITS/ML SUBCUT SCH ×4 (05:54→22:01)
[2017-12-17 06:07] LABS: CHLORIDE 99 mEq/L (98-107)
[2017-12-17] MEDS: ACETYLCYSTEINE 100MG/ML 10% VIAL 4ML INH SCH ×2 (08:40→16:45)
[2017-12-17 09:22] LABS: BG BASE EXCESS 8.6 mmol/L (-2.0-2.0); BG CARBOXYHEMOGLOBIN 0.9 % (0.5-1.5); BG DEOXYHEMOGLOBIN 3.6 % (0.0-5.0); BG FRACTION INSPIRED OXYGEN 100; BG METHEMOGLOBIN 0.4 % (0.0-1.5); BG OXYGEN SATURATION 96.4 % (92.0-98.5); BG OXYHEMOGLOBIN 95.1 % (94.0-97.0); BG PCO2 54.8 mmHg (35.0-45.0); BG PH 7.423 (7.350-7.450); BG PO2 86.4 mmHg (75.0-100.0); BG SAMPLE SITE LEFT RADIAL; BG TIDAL VOLUME(mL) 500 mL; BG TOTAL HEMOGLOBIN 15.1 g/dL (12.0-18.0); BG VENT MODE VENT - A/C; BG VENT RATE 20 set
[2017-12-17] MEDS: ASPIRIN 325MG EC TABLET PO SCH (10:07)
[2017-12-17] MEDS: GUAIFENESIN/DM 600MG/30MG ER TAB 12HR PO SCH ×2 (10:07→21:49)
[2017-12-17] MEDS: PANTOPRAZOLE SODIUM 40 MG/VIAL IV SCH (10:07)
[2017-12-17] MEDS: NYSTATIN POWDER 15GM TOP SCH ×2 (10:08→17:12)
[2017-12-17] MEDS: ENOXAPARIN 100MG/ML SYR SUBCUT SCH ×2 (10:08→21:49)
[2017-12-17] MEDS: INSULIN GLARGINE UD 100 UNITS/ML SYR SUBCUT SCH ×2 (11:58→22:04)
[2017-12-18] VITALS (91 sets, daily range): BP systolic 81–118; BP diastolic 39–87
[2017-12-18] MEDS: IPRATROPIUM/ALBUTEROL 0.5-3(2.5)MG/3ML NEB HHN SCH ×6 (00:15→20:10)
[2017-12-18] MEDS: ACETYLCYSTEINE 100MG/ML 10% VIAL 4ML INH SCH ×3 (00:16→16:35)
[2017-12-18] MEDS: DIPHENHYDRAMINE 50MG/ML VIAL IV PRN (00:53)
[2017-12-18] MEDS: LINEZOLID 600 MG PREMIX 300 ML IV SCH ×2 (00:53→13:20)
[2017-12-18] MEDS: METOCLOPRAMIDE HCL 10MG/2ML VIAL IV SCH ×5 (00:53→23:39)
[2017-12-18] MEDS: NOREPINEPHRINE 16 MG in DEXT 5% WATER 234 ML IV PRN (00:53)
[2017-12-18] MEDS: BLOOD SUGAR DIAGNOSTIC STRIP TEST SCH ×4 (05:18→20:34)
[2017-12-18 05:37] LABS: BASOPHILS % 0.2 % (0.0-2.0); HEMATOCRIT. 43.9 % (36.0-48.0); HEMOGLOBIN. 14.4 g/dL (12.0-16.0); LYMPHOCYTES % 7.1 % (20.0-50.0); MEAN CORPUSCULAR HEMOGLOBIN 30.8 pg (28.0-32.0); MEAN CORPUSCULAR VOLUME 93.6 fL (81.0-99.0); MEAN PLATELET VOLUME 9.2 fl (7.4-10.4); MONOCYTES % 4.6 % (2.0-8.0); NEUTROPHILS % 88.1 % (40.0-76.0); PLATELET 250 x1000/uL (130-400); RED BLOOD CELL COUNT 4.69 mill/uL (4.2-5.4); RED CELL DISTRIBUTION WIDTH 16.7 % (11.6-14.6)
[2017-12-18 05:47] LABS: CHLORIDE 103 mEq/L (98-107)
[2017-12-18] MEDS: FUROSEMIDE 40MG/4ML VIAL IVP SCH ×2 (06:00→17:22)
[2017-12-18] MEDS: INSULIN LISPRO 100 UNITS/ML SUBCUT SCH ×4 (07:00→20:34)
[2017-12-18 08:01] LABS: BG DEOXYHEMOGLOBIN 4.3 % (0.0-5.0); BG HCO3 ACT 35.7 mmol/L (22.0-26.0); BG METHEMOGLOBIN 0.4 % (0.0-1.5); BG OXYGEN SATURATION 95.6 % (92.0-98.5); BG OXYHEMOGLOBIN 94.3 % (94.0-97.0); BG PCO2 56.4 mmHg (35.0-45.0); BG PH 7.419 (7.350-7.450); BG PO2 77.9 mmHg (75.0-100.0); BG SAMPLE SITE RIGHT RADIAL; BG TIDAL VOLUME(mL) 550 mL; BG TOTAL HEMOGLOBIN 15.2 g/dL (12.0-18.0); BG VENT MODE VENT - A/C; BG VENT RATE 20 set
[2017-12-18] MEDS: GUAIFENESIN/DM 600MG/30MG ER TAB 12HR PO SCH ×2 (08:37→20:32)
[2017-12-18] MEDS: ASPIRIN 325MG EC TABLET PO SCH (08:37)
[2017-12-18] MEDS: PANTOPRAZOLE SODIUM 40 MG/VIAL IV SCH (08:37)
[2017-12-18] MEDS: ENOXAPARIN 100MG/ML SYR SUBCUT SCH ×2 (08:38→20:33)
[2017-12-18] MEDS: NYSTATIN POWDER 15GM TOP SCH ×2 (08:40→17:22)
[2017-12-18] MEDS: MORPHINE SULFATE 4 MG/ML CPJ (NOT FOR IM USE) IV PRN (08:40)
[2017-12-18] MEDS ORDERED: LACTULOSE 20G/30ML UDC PO SCH (09:15)
[2017-12-18] MEDS: PROPOFOL 10MG/ML 100ML 100 ML IV PRN ×4 (09:40→21:52)
[2017-12-18] MEDS: BISACODYL 5MG TABLET PO SCH (09:41)
[2017-12-18] MEDS: DOCUSATE SODIUM SUGAR FREE 100MG/10ML UDC NG SCH (09:43)
[2017-12-18] MEDS: ACETAMINOPHEN 325MG TABLET PO PRN ×2 (09:43→17:22)
[2017-12-18] MEDS: INSULIN GLARGINE UD 100 UNITS/ML SYR SUBCUT SCH ×2 (11:16→21:04)
[2017-12-18 13:30] LABS: PLATELET ESTIMATE NORMAL
[2017-12-18] MEDS ORDERED: LIDOCAINE HCL/PF 1% 2ML VIAL ONE (15:12)
[2017-12-19] VITALS (94 sets, daily range): BP systolic 49–131; BP diastolic 27–80
[2017-12-19] MEDS: IPRATROPIUM/ALBUTEROL 0.5-3(2.5)MG/3ML NEB HHN SCH ×6 (00:34→20:00)
[2017-12-19] MEDS: LINEZOLID 600 MG PREMIX 300 ML IV SCH ×2 (01:05→14:11)
[2017-12-19] MEDS: PROPOFOL 10MG/ML 100ML 100 ML IV PRN (02:02)
[2017-12-19] MEDS: METOCLOPRAMIDE HCL 10MG/2ML VIAL IV SCH ×3 (05:01→17:27)
[2017-12-19] MEDS: FUROSEMIDE 40MG/4ML VIAL IVP SCH ×2 (05:01→17:27)
[2017-12-19] MEDS: NOREPINEPHRINE 16 MG in DEXT 5% WATER 234 ML IV PRN (05:01)
[2017-12-19] MEDS: MORPHINE SULFATE 4 MG/ML CPJ (NOT FOR IM USE) IV PRN ×2 (05:10→09:38)
[2017-12-19 05:35] LABS: HEMATOCRIT. 43.8 % (36.0-48.0); HEMOGLOBIN. 14.3 g/dL (12.0-16.0); MEAN CORPUSCULAR HEMOGLOBIN 30.7 pg (28.0-32.0); MEAN PLATELET VOLUME 10.1 fl (7.4-10.4); PLATELET 221 x1000/uL (130-400); RED BLOOD CELL COUNT 4.66 mill/uL (4.2-5.4); RED CELL DISTRIBUTION WIDTH 16.5 % (11.6-14.6)
[2017-12-19] MEDS: BLOOD SUGAR DIAGNOSTIC STRIP TEST SCH ×4 (05:56→20:44)
[2017-12-19 06:00] LABS: CHLORIDE 104 mEq/L (98-107)
[2017-12-19] MEDS: INSULIN LISPRO 100 UNITS/ML SUBCUT SCH ×4 (06:02→20:52)
[2017-12-19] MEDS: ACETAMINOPHEN 325MG TABLET PO PRN ×3 (06:06→15:15)
[2017-12-19] MEDS: PHENYLEPHRINE 40 MG in DEXT 5% WATER 246 ML IV PRN ×4 (07:31→20:00)
[2017-12-19 07:38] LABS: BG BASE EXCESS 6.6 mmol/L (-2.0-2.0); BG CARBOXYHEMOGLOBIN 1.1 % (0.5-1.5); BG DEOXYHEMOGLOBIN 12.3 % (0.0-5.0); BG HCO3 ACT 32.3 mmol/L (22.0-26.0); BG METHEMOGLOBIN 0.3 % (0.0-1.5); BG OXYGEN SATURATION 87.5 % (92.0-98.5); BG OXYHEMOGLOBIN 86.3 % (94.0-97.0); BG PCO2 49.4 mmHg (35.0-45.0); BG PH 7.433 (7.350-7.450); BG PO2 53.3 mmHg (75.0-100.0); BG SAMPLE SITE RIGHT RADIAL; BG TIDAL VOLUME(mL) 550 mL; BG TOTAL HEMOGLOBIN 15.2 g/dL (12.0-18.0); BG VENT MODE VENT - A/C; BG VENT RATE 20 set
[2017-12-19] MEDS ORDERED: PROPOFOL 10MG/ML 100ML 100 ML IV PRN (09:30)
[2017-12-19] MEDS: PANTOPRAZOLE SODIUM 40 MG/VIAL IV SCH (09:30)
[2017-12-19] MEDS: DOCUSATE SODIUM SUGAR FREE 100MG/10ML UDC NG SCH (09:31)
[2017-12-19] MEDS: GUAIFENESIN/DM 600MG/30MG ER TAB 12HR PO SCH ×2 (09:32→20:52)
[2017-12-19] MEDS: ASPIRIN 325MG EC TABLET PO SCH (09:32)
[2017-12-19] MEDS: ENOXAPARIN 100MG/ML SYR SUBCUT SCH ×2 (09:32→20:52)
[2017-12-19] MEDS: BISACODYL 5MG TABLET PO SCH (09:32)
[2017-12-19] MEDS: NYSTATIN POWDER 15GM TOP SCH ×2 (09:32→17:27)
[2017-12-19] MEDS: INSULIN GLARGINE UD 100 UNITS/ML SYR SUBCUT SCH ×2 (09:35→21:00)
[2017-12-19] MEDS ORDERED: BISACODYL 10MG SUPP PR PRN (09:45)
[2017-12-19] MEDS ORDERED: LACTULOSE 20G/30ML UDC PO PRN (09:45)
[2017-12-19] MEDS ORDERED: LACTULOSE 20G/30ML UDC PO NR (09:45)
[2017-12-19] MEDS ORDERED: SODIUM CHLORIDE 0.9% 250 ML IV ONE (10:15)
[2017-12-19] MEDS ORDERED: SODIUM CHLORIDE 0.9% 250 ML IV NR (10:15)
[2017-12-19] MEDS ORDERED: SODIUM CHLORIDE 3% FOR INH 15ML VIAL NEB INH SCH (10:30)
[2017-12-19 11:03] LABS: CLARITY URINE CLEAR (CLEAR); COLOR URINE DARK YELLOW (YELLOW); KETONES URINE NEGATIVE (NEGATIVE); LEUKOCYTE ESTERASE URINE NEGATIVE (NEGATIVE); NITRITE URINE NEGATIVE (NEGATIVE); OCCULT BLOOD URINE 1+ (NEGATIVE); PH URINE 5.5 (4.5-8.0); PROTEIN URINE TRACE (NEGATIVE); SPECIFIC GRAVITY URINE 1.021 (1.005-1.030)
[2017-12-19] MEDS: BISACODYL 10MG SUPP PR NR ×2 (11:52→12:00)
[2017-12-19 13:17] LABS: NUCLEATED RED BLOOD CELLS 2 /100 WBC; PLATELET ESTIMATE NORMAL
[2017-12-19] MEDS ORDERED: EPINEPHRINE 0.1MG/ML (1:10,000) 10ML SYR ONE (13:40)
[2017-12-19] MEDS ORDERED: SODIUM BICARBONATE 7.5% 0.9 MEQ/ML 50ML SYR IV ONE (13:40)
[2017-12-19] MEDS ORDERED: ACETYLCYSTEINE 100MG/ML 10% VIAL 4ML INH SCH (14:00)
[2017-12-19 14:56] LABS: BG BASE EXCESS 7.9 mmol/L (-2.0-2.0); BG DEOXYHEMOGLOBIN 16.6 % (0.0-5.0); BG HCO3 ACT 35.1 mmol/L (22.0-26.0); BG METHEMOGLOBIN 0.2 % (0.0-1.5); BG OXYGEN SATURATION 83.2 % (92.0-98.5); BG OXYHEMOGLOBIN 82.2 % (94.0-97.0); BG PCO2 59.1 mmHg (35.0-45.0); BG PH 7.391 (7.350-7.450); BG PO2 48.8 mmHg (75.0-100.0); BG SAMPLE SITE RIGHT RADIAL; BG TIDAL VOLUME(mL) 550 mL; BG TOTAL HEMOGLOBIN 15.2 g/dL (12.0-18.0); BG VENT MODE VENT - A/C; BG VENT RATE 20 set
[2017-12-19] MEDS ORDERED: LIDOCAINE HCL/PF 1% 2ML VIAL ONE (15:13)
[2017-12-19] MEDS ORDERED: AZTREONAM 1 G in DEXTROSE 5% WATER 50 ML IV SCH (16:00)
[2017-12-19] MEDS ORDERED: DILTIAZEM HCL 125 MG in DEXT 5% WATER 100 ML IV PRN (18:45)
== END 2017-12-19 22:30 | disposition expired | DRG 720 ==
LOC: ER 02:59 → EDBEDREQ 05:27 → EDBEDREQTM 05:27 → EDBEDREQSVC 05:27 → ENRESERV 12:42 → MICUSO 13:29
PROVIDERS: ADMIT Internal Medicine; ATTEND Internal Medicine
PROC: 5A1955Z Respiratory Ventilation, Greater than 96 Consecutive Hours (ICD-10-PCS; principal; 2017-12-09)
PROC: 0BH17EZ Insertion of Endotracheal Airway into Trachea, Via Natural or Artificial Opening (ICD-10-PCS; 2017-12-09)
PROC: 05HY33Z Insertion of Infusion Device into Upper Vein, Percutaneous Approach (ICD-10-PCS; 2017-12-09)
PROC: 5A09357 Assistance with Respiratory Ventilation, Less than 24 Consecutive Hours, Continuous Positive Airway Pressure (ICD-10-PCS; 2017-12-09)
PROC: B54MZZA Ultrasonography of Right Upper Extremity Veins, Guidance (ICD-10-PCS; 2017-12-09)
PROC: 5A12012 Performance of Cardiac Output, Single, Manual (ICD-10-PCS; 2017-12-14)
DX: A41.9 Sepsis, unspecified organism (principal); E43 Unspecified severe protein-calorie malnutrition; I50.43 Acute on chronic combined systolic (congestive) and diastolic (congestive) heart failure; R65.21 Severe sepsis with septic shock; J96.01 Acute respiratory failure with hypoxia; J96.02 Acute respiratory failure with hypercapnia; L89.303 Pressure ulcer of unspecified buttock, stage 3; I11.0 Hypertensive heart disease with heart failure; I48.91 Unspecified atrial fibrillation; N39.0 Urinary tract infection, site not specified; Z68.45 Body mass index [BMI] 70 or greater, adult; E11.65 Type 2 diabetes mellitus with hyperglycemia; E66.01 Morbid (severe) obesity due to excess calories; E87.5 Hyperkalemia; I87.2 Venous insufficiency (chronic) (peripheral); K59.00 Constipation, unspecified; L03.90 Cellulitis, unspecified; M79.3 Panniculitis, unspecified; L53.9 Erythematous condition, unspecified; Z79.4 Long term (current) use of insulin
CPT/HCPCS: 36415; 36569; 36600; 71045; 76937; 78580; 80048; 80053; 80061; 80202; 80305; 81003; 82375; 82550; 82553; 82805; 82962; 83605; 83735; 83880; 84443; 84478; 84484; 85025; 85379; 85610; 85730; 87040; 87070; 87077; 87086; 87186; 93005; 93306; 93970; 94002; 94003; 94640; 94644; 94660; 96365; 96375; 99291; A4216; A6261; C1725; C1769; C9113; J0330; J0456; J0696; J1160; J1200; J1265; J1650; J1815; J1940; J1956; J2020; J2250; J2270; J2370; J2405; J2704; J2765; J2920; J2930; J3010; J3370; J3480; J3490; J7030; J7040; J7050; J7060; J7608; J7611; J7620; A4315